=== PATIENT | female | born 1980 | race Caucasian/White ===

== ENCOUNTER 2016-08-16 17:05 | Emergency (ER) | payer OTHER ==
[~2016-08-16] VITALS: Ht 157.5 cm; Wt 80.7 kg
[~2016-08-16 17:05] MED LIST: AMOX-358 PO; BPR75T PO; CIPR-17 PO; DICY10CA26 PO; HYDR-757 PO; NAPR-243 PO; NITR-65 PO; ONDA4TAB8 PO; ONDAN4ODT PO; OSLT75C PO; PNT40TEC PO; PRM25T PO; SULF-222 PO
--- NOTE | 2016-08-16 18:34 | ED Abdominal Pain ---
General Chief Complaint: Abdominal/GI Problems Stated Complaint: ABD PAIN Nursing Triage Note: ARRIVED VIA AMB TO ROOM 07. COMPLAINS OF RIGHT SIDED ABD PAIN FOR SEVERAL DAYS. STATES TODAY AT WORK SHE STARTED HAVING STABBING PAIN. ALSO STATES WITH THIS PAIN SHE HAS HAD DIARRHEA AND A STOOL CX HAS BEEN SENT OFF AND IS WAITING ON A COLONOSCOPY WITH DR KIRAN. Sepsis Screen: No Definite Risk Source of Information: Patient, RN Notes Reviewed Exam Limitations: No Limitations History of Present Illness Time Seen By Provider: 18:33 Initial Comments Patient presents along c/ her c/ c/o RLQ abdominal pain. Has been having intermittent bouts of abdominal pain c/ diarrhea for a while now. Current bout started this AM and caused her to cry from the pain while @ work. Described as sharp and stabbing. Rates her pain a 5/10 @ present. Not sure of any fever. 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 (+) nausea the last 2 mornings as well. Denies any symptoms. Has had a BTL. Had recent stool evaluation and it returned negative for anything infectious per the patient. Dr. Kiran is going to set her up for a colonoscopy. Timing/Duration: Getting Worse (worse ever earlier today while @ work) Severity/Quality: Moderate, Dull Location: Flank (right) Radiation: No Radiation Activities at Onset: None Modifying Factors: Improves With Other (none) Associated Symptoms: Other (nausea) Allergies and Home Medications Allergies Coded Allergies: Penicillins (Verified Allergy, Unknown, 10/15/06) magnesium sulfate (Verified Allergy, Unknown, 10/15/06) ciprofloxacin (Unverified Adverse Reaction, Intermediate, HIVES, THROAT SWELLING, 05/09/10) Home Medications Famotidine 20 Mg Tablet, 20 MG PO BID, #30 Ref 0 Prescribed by: FLORIDA PAVON on 08/16/162042 Hyoscyamine Sulfate 0.125 Mg Tab.subl, 1-2 TAB SL Q6H PRN for CRAMPING/DIARRHEA , #30 Ref 0 Prescribed by: FLORIDA PAVON on 08/16/162042 Ondansetron HCl 4 Mg Tab, 4 MG PO Q6H PRN for NAUSEA/VOMITING, #10 Ref 0 Prescribed by: FLORIDA PAVON on 08/16/162042 Review of Systems Constitutional: see HPI Gastrointestinal: See HPI, Abdominal Pain, Diarrhea, Nausea All Other Systems Reviewed Negative Unless Noted: Yes (Negative excepted noted.) Past Xvaygrn-Inecax-Fwahth Hx Patient Social History Alcohol Use: Occasionally Uses Recreational Drug Use: No Smoking Status: Current Everyday Smoker Recent Foreign Travel: No Contact w/Someone Who Travel: No Recent Infectious Disease Expo: No Recent Hopitalizations: No Immunizations Up To Date Tetanus Booster (TDap): Less than 5yrs Surgeries HX Surgeries: Yes (COLONOSCOPY) Surgeries: Section, Tubal Ligation Respiratory Hx Respiratory Disorders: No Cardiovascular Hx Cardiac Disorders: No Neurological Hx Neurological Disorders: No Reproductive System Hx Reproductive Disorders: Yes Female Reproductive Disorders: Ovarian 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: Tubal Ligation Genitourinary Hx Genitourinary Disorders: Yes Genitourinary Disorders: Kidney Stones Gastrointestinal Hx Gastrointestinal Disorders: Yes (SPASTIC COLON) Gastrointestinal Disorders: Diverticulosis, Irritable Bowel Musculoskeletal Hx Musculoskeletal Disorders: No Endocrine Hx Endocrine Disorders: No HEENT HX ENT Disorders: No Cancer Hx Cancer: No Psychosocial Hx Psychiatric Problems: No Integumentary HX Skin/Integumentary Disorder: No Blood Transfusions Hx Blood Disorders: No Physical Exam Vital Signs VS - Last 72 Hours, by Label 08/16/16 08/16/16 17:35 20:56 Temp 98.0 98.0 Pulse 99 80 Resp 18 18 B/P (MAP) 139/70 Pulse Ox 98 97 Capillary Refill : Less Than 3 Seconds General Appearance: WD/WN, mild distress, obese Respiratory: no respiratory distress Cardiovascular: regular rate, rhythm Gastrointestinal: soft, No guarding, No rebound, tenderness (area of the junction of the RUQ and RLQ) Rectal: deferred Back: no CVA tenderness Neurologic/Psychiatric: no motor/sensory deficits, alert, oriented x 3 Skin: warm/dry Progress/Results/Core Measures Results/Orders Lab Results Laboratory Tests Test 08/16/16 18:45 08/16/16 18:56 Range/Units White Blood Count 10.5 4.3-11.0 10^3/uL Red Blood Count 4.57 4.35-5.85 10^6/uL Hemoglobin 13.1 11.5-16.0 G/DL Hematocrit 41 35-52 % Mean Corpuscular Volume 89 80-99 FL Mean Corpuscular Hemoglobin 29 25-34 PG Mean Corpuscular Hemoglobin Concent 32 32-36 G/DL Red Cell Distribution Width 13.5 10.0-14.5 % Platelet Count 351 130-400 10^3/uL Mean Platelet Volume 9.9 7.4-10.4 FL Neutrophils (%) (Auto) 68 42-75 % Lymphocytes (%) (Auto) 21 12-44 % Monocytes (%) (Auto) 8 0-12 % Eosinophils (%) (Auto) 2 0-10 % Basophils (%) (Auto) 1 0-10 % Neutrophils # (Auto) 7.1 1.8-7.8 X 10^3 Lymphocytes # (Auto) 2.2 1.0-4.0 X 10^3 Monocytes # (Auto) 0.8 0.0-1.0 X 10^3 Eosinophils # (Auto) 0.3 0.0-0.3 10^3/uL Basophils # (Auto) 0.1 0.0-0.1 10^3/uL Sodium Level 138 135-145 MMOL/L Potassium Level 4.0 3.6-5.0 MMOL/L Chloride Level 106 98-107 MMOL/L Carbon Dioxide Level 20 L 21-32 MMOL/L Anion Gap 12 5-14 MMOL/L Blood Urea Nitrogen 13 7-18 MG/DL Creatinine 0.67 0.60-1.30 MG/DL Estimat Glomerular Filtration Rate > 60 BUN/Creatinine Ratio 19 Glucose Level 100 70-105 MG/DL Calcium Level 8.9 8.5-10.1 MG/DL Total Bilirubin 0.2 0.1-1.0 MG/DL Aspartate Amino Transf (AST/SGOT) 13 5-34 U/L Alanine Aminotransferase (ALT/SGPT) 15 0-55 U/L Alkaline Phosphatase 95 40-136 U/L Total Protein 7.1 6.4-8.2 GM/DL Albumin 4.0 3.2-4.5 GM/DL Lipase 22 8-78 U/L Serum Test, Qualitative NEGATIVE NEGATIVE Urine Color YELLOW Urine Clarity SLIGHTLY CLOUDY Urine pH 5 5-9 Urine Specific [place] 1.025 H 1.016-1.022 Urine Protein 1+ H NEGATIVE Urine Glucose (UA) NEGATIVE NEGATIVE Urine Ketones 1+ H NEGATIVE Urine Nitrite NEGATIVE NEGATIVE Urine Bilirubin NEGATIVE NEGATIVE Urine Urobilinogen NORMAL NORMAL MG/DL Urine Leukocyte Esterase NEGATIVE NEGATIVE Urine RBC (Auto) 3+ H NEGATIVE Urine RBC NONE /HPF Urine WBC NONE /HPF Urine Squamous Epithelial Cells 0-5 /HPF Urine Crystals PRESENT H /LPF Urine Calcium Oxalate Crystals MODERATE H /LPF Urine Bacteria NEGATIVE /HPF Urine Casts NONE /LPF Urine Mucus MODERATE H /LPF Urine Culture Indicated NO My Orders Orders - FLORIDA PAVON DO Saline Lock/Iv-Start (08/16/16 18:36) Cbc With Automated Diff (08/16/16 18:36) Comprehensive Metabolic Panel (08/16/16 18:36) Lipase (08/16/16 18:36) Ua Culture If Indicated (08/16/16 18:36) Hcg,Qualitative Serum (08/16/16 18:36) Ketorolac Injection (Toradol Injection) (08/16/16 18:45) Ct Abd/Pelvis Wo(Kidney Stone) (08/16/16 19:41) Famotidine Tablet (Pepcid Tablet) (08/16/16 20:45) Ondansetron Injection (Zofran Injectio (08/16/16 20:45) Medications Given in ED Current Medications Medications Dose Ordered Sig/Carlos A Route Start Time Stop Time Status Last Admin Dose Admin Famotidine 40 mg ONCE ONCE PO 08/16/16 20:45 08/16/16 20:46 DC 08/16/16 20:48 40 MG Ketorolac Tromethamine 30 mg ONCE ONCE IVP 08/16/16 18:45 08/16/16 18:46 DC 08/16/16 18:50 30 MG Ondansetron HCl 4 mg ONCE ONCE IVP 08/16/16 20:45 08/16/16 20:46 DC 08/16/16 20:48 4 MG Vital Signs/I&O Vital Sign - Last 12Hours 08/16/16 08/16/16 17:35 20:56 Temp 98.0 98.0 Pulse 99 80 Resp 18 18 B/P (MAP) 139/70 Pulse Ox 98 97 Blood Pressure Mean: 93 Diagnostic Imaging Diagonstic Imaging: CT Plain Films/CT/US/NM/MRI: abdomen, pelvis Reviewed: Reviewed/Discussed (nothing acute per radiologist) Departure Impression Impression: Primary Impression: Abdominal pain Additional Impression: IBS (irritable bowel syndrome) Disposition: 01 HOME, SELF-CARE Condition: Stable Departure-Patient Inst. Decision time for Depature: 20:38 Referrals: MARIA L KIRAN MD, DANIEL J MD (PCP/Family) Primary Care Physician Patient Instructions: Irritable Bowel Syndrome (DC) Add. Discharge Instructions: All discharge instructions reviewed with patient and/or family. Voiced understanding. CALL DR. KIRAN ON THURSDAY TO SCHEDULE FOLLOW UP, INCLUDING COLONOSCOPY. Scripts Hyoscyamine Sulfate (Levsin-Sl) 0.125 Mg Tab.subl 1-2 TAB SL Q6H Y for CRAMPING/DIARRHEA, #30 TAB 0 Refills Prov: FLORIDA PAVON DO 08/16/16 Ondansetron HCl (Zofran) 4 Mg Tab 4 MG PO Q6H Y for NAUSEA/VOMITING, #10 TAB 0 Refills Prov: FLORIDA PAVON DO 08/16/16 Famotidine (Pepcid) 20 Mg Tablet 20 MG PO BID, #30 TAB 0 Refills Prov: FLORIDA PAVON DO 08/16/16 Work/School Note: Work Release Form Date Seen in the Emergency Department: Aug 16, 2016 Return to Work: Aug 18, 2016 Restrictions: No Restrictions FLORIDA PAVON DO Aug 16, 2016 18:34
[2016-08-16] MEDS ORDERED: KETOROLAC 30 MG/ML VIAL IVP ONE (18:45)
[2016-08-16 18:59] LABS: BASOPHILS # (AUTO) 0.1 10^3/uL (0.0-0.1); BASOPHILS % (AUTO) 1 % (0-10); EOSINOPHILS # (AUTO) 0.3 10^3/uL (0.0-0.3); EOSINOPHILS % (AUTO) 2 % (0-10); LYMPHOCYTES # (AUTO) 2.2 X 10^3 (1.0-4.0); LYMPHOCYTES % (AUTO) 21 % (12-44); MEAN CORPUSCULAR HEMOGLOBIN 29 PG (25-34); MEAN CORPUSCULAR HGB CONC 32 G/DL (32-36); MEAN CORPUSCULAR VOLUME 89 FL (80-99); MEAN PLATELET VOLUME 9.9 FL (7.4-10.4); MONOCYTES # (AUTO) 0.8 X 10^3 (0.0-1.0); MONOCYTES % (AUTO) 8 % (0-12); NEUTROPHILS # (AUTO) 7.1 X 10^3 (1.8-7.8); NEUTROPHILS % (AUTO) 68 % (42-75); PLATELET COUNT 351 10^3/uL (130-400); RED BLOOD COUNT 4.57 10^6/uL (4.35-5.85); RED CELL DISTRIBUTION WIDTH 13.5 % (10.0-14.5); WHITE BLOOD COUNT 10.5 10^3/uL (4.3-11.0)
[2016-08-16 19:27] LABS: ALANINE AMINOTRANSFERASE 15 U/L (0-55); ANION GAP 12 MMOL/L (5-14); ASPARTATE AMINO TRANSFERASE 13 U/L (5-34); BILIRUBIN,TOTAL 0.2 MG/DL (0.1-1.0); BLOOD UREA NITROGEN 13 MG/DL (7-18); BUN/CREATININE RATIO 19; CALCIUM 8.9 MG/DL (8.5-10.1); CARBON DIOXIDE 20 MMOL/L (21-32); CHLORIDE 106 MMOL/L (98-107); CREATININE SERUM 0.67 MG/DL (0.60-1.30); GFR ESTIMATED > 60; GLUCOSE 100 MG/DL (70-105); LIPASE 22 U/L (8-78); SODIUM 138 MMOL/L (135-145); TOTAL PROTEIN 7.1 GM/DL (6.4-8.2)
[2016-08-16 19:27] LABS: BILIRUBIN,URINE NEGATIVE (NEGATIVE); KETONES,URINE 1+ (NEGATIVE); LEUKOCYTE ESTERASE ,URINE NEGATIVE (NEGATIVE); NITRITE,URINE NEGATIVE (NEGATIVE); PH,URINE 5 (5-9); PROTEIN,URINE 1+ (NEGATIVE); UROBILINOGEN,URINE NORMAL (NORMAL)
[2016-08-16 19:38] LABS: CALCIUM OXALATE CRYSTALS,UR MODERATE /LPF; SQUAMOUS EPITHELIAL CELL,UR 0-5 /HPF
--- NOTE | 2016-08-16 20:22 | Diagnostic Imaging Report ---
PROCEDURE: CT urinary tract, rule out kidney stone. TECHNIQUE: Multiple contiguous axial images were obtained through the abdomen and pelvis without the use of intravenous contrast. INDICATION: Epigastric pain. Right-sided pain. Diarrhea. History of kidney stones. COMPARISON: 06/29/2014 FINDINGS: Included views of the lung bases are clear. CT abdomen: No renal or ureteral calculi are seen on either side. There is no hydroureteronephrosis or other evidence of obstruction. No focal renal lesions are seen on this noncontrast exam. The liver, spleen, pancreas, and adrenal glands have an unremarkable noncontrast CT appearance as well. Small bowel loops are nondistended. Normal appendix is identified. There is no loculated fluid collection, free fluid, nor free air within the abdomen. No abnormal mesenteric or retroperitoneal adenopathy is seen. Bony structures show no acute abnormalities. CT pelvis: Urinary bladder is unopacified. No calculi are seen within the urinary bladder. There is no loculated fluid collection, free fluid, nor free air within the pelvis. Patient appears to be status post previous tubal ligation. There is prominent hypodense appearance to the central portions of the cervix. No abnormal adenopathy is seen. Bony structures show no acute abnormalities. IMPRESSION: 1. No acute abnormalities within the abdomen or pelvis. No renal or ureteral calculi are seen on either side. 2. Prominent hypodense appearance to the central portions of the cervix. Findings may be on the basis of prominent endocervical fluid. Clinical correlation recommended. Dictated by: Dictated on workstation # [id number]
[2016-08-16] MEDS ORDERED: ONDN4T PO (20:43)
[2016-08-16] MEDS ORDERED: HYOS0.1283 SL (20:43)
[2016-08-16] MEDS ORDERED: FAMO-119 PO (20:43)
[2016-08-16] MEDS ORDERED: ONDANSETRON 4 MG/2 ML (SDV) Z0FRAN IVP ONE (20:45)
[2016-08-16] MEDS ORDERED: FAMOTIDINE 20 MG (PEPCID) TABLET PO ONE (20:45)
[2016-08-16 20:56] VITALS: BP 143/74
--- OUTSIDE RECORDS SUMMARY | 2016-08-19 09:54 | XMS REPORT | Continuity of Care Document ---
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.5 TOXIC EFFECT VENOM 05/08/2011 Ot E000.8 OTHER EXTERNAL CAUSE STATUS 05/08/2011 Ot E905.3 HORNET/WASP/BEE STING 05/08/2011 Ot V06.1 [id number], COMBINED [ 01/19/2012 Ot 564.1 IRRITABLE BOWEL SYNDROME 01/19/2012 Ot 789.00 ABDOMINAL PAIN, UNSPECIFIED SITE 01/13/2013 CORNELL BRISENO, FERNANDO Zayas Ot 558.9 NONINF GASTROENTERIT NEC 01/13/2013 CORNELL BRISENO, FERNANDO Zayas Ot 787.03 VOMITING ALONE 02/25/2014 FAITH CAMPOS APRN Ot 706.2 SEBACEOUS CYST 06/29/2014 FAITH CAMPOS BLENDING COORDINATOR Ot 789.03 ABDOMINAL PAIN, RIGHT LOWER QUADRANT 05/02/2015 SHONDA DAVIS DO Ot F17.210 NICOTINE DEPENDENCE, CIGARETTES, UNCOMPL 05/02/2015 SHONDA DAVIS DO Ot J02.9 ACUTE PHARYNGITIS, UNSPECIFIED 05/02/2015 SHONDA DAVIS DO Ot R05 COUGH 05/02/2015 SHONDA DAVIS DO Ot R68.83 CHILLS (WITHOUT FEVER) 02/08/2016 FAITH CAMPOS APRN Ot K52.9 NONINFECTIVE GASTROENTERITIS AND COLITIS 02/08/2016 FAITH CAMPOS APRN Ot R11.0 NAUSEA 02/08/2016 FAITH CAMPOS BLENDING COORDINATOR Ot R19.7 DIARRHEA, UNSPECIFIED Procedures Results Test Result Range Complete blood count (CBC) with automated white blood cell (WBC) differential - 02/08/16 11:20 Blood leukocytes automated count (number/volume) 8.5 10*3/ uL 4.3-11.0 Blood erythrocytes automated count (number/volume) 4.78 10*6 /uL 4.35-5.85 Venous blood hemoglobin measurement (mass/volume) 13.8 g/dL 11.5-16.0 Blood hematocrit (volume fraction) 42 % 35-52 Automated erythrocyte mean corpuscular volume 89 [foz_us] 80-99 Automated erythrocyte mean corpuscular hemoglobin (mass per erythrocyte) 29 pg 25-34 Automated erythrocyte mean corpuscular hemoglobin concentration measurement ( mass/volume) 33 g/dL 32-36 Automated erythrocyte distribution width ratio 13.6 % 10.0-14.5 Automated blood platelet count (count/volume) 318 10*3/uL 130-400 Automated blood platelet mean volume measurement 9.8 [foz_us ] 7.4-10.4 Automated blood neutrophils/100 leukocytes 70 % 42-75 Automated blood lymphocytes/100 leukocytes 19 % 12-44 Blood monocytes/100 leukocytes 9 % 0-12 Automated blood eosinophils/100 leukocytes 2 % 0-10 Automated blood basophils/100 leukocytes 0 % 0-10 Blood neutrophils automated count (number/volume) 6.0 10*3 1.8-7.8 Blood lymphocytes automated count (number/volume) 1.6 10*3 1.0-4.0 Blood monocytes automated count (number/volume) 0.8 10*3 0.0-1.0 Automated eosinophil count 0.2 10*3/uL 0.0-0.3 Automated blood basophil count (count/volume) 0.0 10*3/uL 0.0-0.1 Comprehensive metabolic panel - 02/08/16 11:20 Serum or plasma sodium measurement (moles/volume) 135 mmol/ L 135-145 Serum or plasma potassium measurement (moles/volume) 3.5 mmol/L 3.6-5.0 Serum or plasma chloride measurement (moles/volume) 105 mmol /L 98-107 Carbon dioxide 20 mmol/L 21-32 Serum or plasma anion gap determination (moles/volume) 10 mmol/L 5-14 Serum or plasma urea nitrogen measurement (mass/volume) 9 mg /dL 7-18 Serum or plasma creatinine measurement (mass/volume) 0.63 mg /dL 0.60-1.30 Serum or plasma urea nitrogen/creatinine mass ratio 14 NRG Serum or plasma creatinine measurement with calculation of estimated glomerular filtration rate > NRG Serum or plasma glucose measurement (mass/volume) 111 mg/dL 70-105 Serum or plasma calcium measurement (mass/volume) 8.7 mg/dL 8.5-10.1 Serum or plasma total bilirubin measurement (mass/volume) 0.4 mg/dL 0.1-1.0 Serum or plasma alkaline phosphatase measurement (enzymatic activity/volume) 113 U/L 40-136 Serum or plasma aspartate aminotransferase measurement (enzymatic activity/ volume) 19 U/L 5-34 Serum or plasma alanine aminotransferase measurement (enzymatic activity/volume ) 22 U/L 0-55 Serum or plasma protein measurement (mass/volume) 7.3 g/dL 6.4-8.2 Serum or plasma albumin measurement (mass/volume) 4.3 g/dL 3.2-4.5 Complete urinalysis with reflex to culture - 02/08/16 12:04 Urine color determination YELLOW NRG Urine clarity determination CLEAR NRG Urine pH measurement by test strip 5 5- 9 Specific gravity of urine by test strip 1.025 1.016-1.022 Urine protein assay by test strip, semi-quantitative 1+ NEGATIVE Urine glucose detection by automated test strip NEGATIVE NEGATIVE Erythrocytes detection in urine sediment by light microscopy 2+ NEGATIVE Urine ketones detection by automated test strip NEGATIVE NEGATIVE Urine nitrite detection by test strip NEGATIVE NEGATIVE Urine total bilirubin detection by test strip NEGATIVE NEGATIVE Urine urobilinogen measurement by automated test strip (mass/volume) NORMAL NORMAL Urine leukocyte esterase detection by dipstick NEGATIVE NEGATIVE Automated urine sediment erythrocyte count by microscopy (number/high power field) NONE NRG Automated urine sediment leukocyte count by microscopy (number/high power field ) NONE NRG Bacteria detection in urine sediment by light microscopy LARGE NRG Squamous epithelial cells detection in urine sediment by light microscopy 10-25 NRG Crystals detection in urine sediment by light microscopy PRESENT NRG Casts detection in urine sediment by light microscopy NONE NRG Mucus detection in urine sediment by light microscopy NEGATIVE NRG Complete urinalysis with reflex to culture NO NRG Calcium oxalate crystals detection in urine sediment by light microscopy MODERATE NRG Complete blood count (CBC) with automated white blood cell (WBC) differential - 08/16/16 18:45 Blood leukocytes automated count (number/volume) 10.5 10*3/ uL 4.3-11.0 Blood erythrocytes automated count (number/volume) 4.57 10*6 /uL 4.35-5.85 Venous blood hemoglobin measurement (mass/volume) 13.1 g/dL 11.5-16.0 Blood hematocrit (volume fraction) 41 % 35-52 Automated erythrocyte mean corpuscular volume 89 [foz_us] 80-99 Automated erythrocyte mean corpuscular hemoglobin (mass per erythrocyte) 29 pg 25-34 Automated erythrocyte mean corpuscular hemoglobin concentration measurement ( mass/volume) 32 g/dL 32-36 Automated erythrocyte distribution width ratio 13.5 % 10.0-14.5 Automated blood platelet count (count/volume) 351 10*3/uL 130-400 Automated blood platelet mean volume measurement 9.9 [foz_us ] 7.4-10.4 Automated blood neutrophils/100 leukocytes 68 % 42-75 Automated blood lymphocytes/100 leukocytes 21 % 12-44 Blood monocytes/100 leukocytes 8 % 0-12 Automated blood eosinophils/100 leukocytes 2 % 0-10 Automated blood basophils/100 leukocytes 1 % 0-10 Blood neutrophils automated count (number/volume) 7.1 10*3 1.8-7.8 Blood lymphocytes automated count (number/volume) 2.2 10*3 1.0-4.0 Blood monocytes automated count (number/volume) 0.8 10*3 0.0-1.0 Automated eosinophil count 0.3 10*3/uL 0.0-0.3 Automated blood basophil count (count/volume) 0.1 10*3/uL 0.0-0.1 Serum or plasma choriogonadotropin ( test) detection - 08/16/16 18:45 Serum or plasma choriogonadotropin ( test) detection NEGATIVE NEGATIVE Comprehensive metabolic panel - 08/16/16 18:45 Serum or plasma sodium measurement (moles/volume) 138 mmol/ L 135-145 Serum or plasma potassium measurement (moles/volume) 4.0 mmol/L 3.6-5.0 Serum or plasma chloride measurement (moles/volume) 106 mmol /L 98-107 Carbon dioxide 20 mmol/L 21-32 Serum or plasma anion gap determination (moles/volume) 12 mmol/L 5-14 Serum or plasma urea nitrogen measurement (mass/volume) 13 mg/dL 7-18 Serum or plasma creatinine measurement (mass/volume) 0.67 mg /dL 0.60-1.30 Serum or plasma urea nitrogen/creatinine mass ratio 19 NRG Serum or plasma creatinine measurement with calculation of estimated glomerular filtration rate > NRG Serum or plasma glucose measurement (mass/volume) 100 mg/dL 70-105 Serum or plasma calcium measurement (mass/volume) 8.9 mg/dL 8.5-10.1 Serum or plasma total bilirubin measurement (mass/volume) 0.2 mg/dL 0.1-1.0 Serum or plasma alkaline phosphatase measurement (enzymatic activity/volume) 95 U/L 40-136 Serum or plasma aspartate aminotransferase measurement (enzymatic activity/ volume) 13 U/L 5-34 Serum or plasma alanine aminotransferase measurement (enzymatic activity/volume ) 15 U/L 0-55 Serum or plasma protein measurement (mass/volume) 7.1 g/dL 6.4-8.2 Serum or plasma albumin measurement (mass/volume) 4.0 g/dL 3.2-4.5 Lipase - 08/16/16 18:45 Lipase 22 U/L 8-78 Complete urinalysis with reflex to culture - 08/16/16 18:56 Urine color determination YELLOW NRG Urine clarity determination SLIGHTLY CLOUDY NRG Urine pH measurement by test strip 5 5- 9 Specific gravity of urine by test strip 1.025 1.016-1.022 Urine protein assay by test strip, semi-quantitative 1+ NEGATIVE Urine glucose detection by automated test strip NEGATIVE NEGATIVE Erythrocytes detection in urine sediment by light microscopy 3+ NEGATIVE Urine ketones detection by automated test strip 1+ NEGATIVE Urine nitrite detection by test strip NEGATIVE NEGATIVE Urine total bilirubin detection by test strip NEGATIVE NEGATIVE Urine urobilinogen measurement by automated test strip (mass/volume) NORMAL NORMAL Urine leukocyte esterase detection by dipstick NEGATIVE NEGATIVE Automated urine sediment erythrocyte count by microscopy (number/high power field) NONE NRG Automated urine sediment leukocyte count by microscopy (number/high power field ) NONE NRG Bacteria detection in urine sediment by light microscopy NEGATIVE NRG Squamous epithelial cells detection in urine sediment by light microscopy 0-5 NRG Crystals detection in urine sediment by light microscopy PRESENT NRG Casts detection in urine sediment by light microscopy NONE NRG Mucus detection in urine sediment by light microscopy MODERATE NRG Complete urinalysis with reflex to culture NO NRG Calcium oxalate crystals detection in urine sediment by light microscopy MODERATE NRG Encounters ACCT No. Visit Date/Time Discharge Status Pt. Type Provider Facility Loc./Unit Complaint [id number] 08/16/2016 17:06:00 2016 20:56:00 DIS Emergency FLORIDA PAVON DO [facility] ER ABD PAIN [id number] 02/08/2016 11:02:00 2015 12:44:00 DIS Emergency FAITH CAMPOS APRN [facility] ER DIARRHEA [id number] 05/02/2015 13:13:00 2015 13:55:00 DIS Emergency SHONDA DAVIS DO [facility] ER FLU SYMPTOMS [id number] 06/29/2014 19:03:00 2014 21:42:00 DIS Emergency FAITH CAMPOS APRN [facility] ER R SIDE PAIN [id number] 02/25/2014 09:45:00 2014 11:09:00 DIS Emergency FAITH CAMPOS APRN [facility] ER NECK ABCESS [id number] 01/13/2013 13:55:00 2012 16:30:00 DIS Emergency FERNANDO SAARBIA MD [facility] ER V/D HEADACHE BACK/LEG PAIN [id number] 01/19/2012 15:54:00 Document Registration [id number] 05/08/2011 14:49:00 Document Registration
== END 2016-08-16 20:56 | disposition home or self-care (01) ==
LOC: EDUNIT# 17:05 → ER 17:06
DX: Z98.51 Tubal ligation status; K58.9 Irritable bowel syndrome, unspecified; Z87.442 Personal history of urinary calculi; Z87.19 Personal history of other diseases of the digestive system; F17.200 Nicotine dependence, unspecified, uncomplicated
CPT/HCPCS: 36415; 74176; 80053; 81000; 83690; 84703; 85025; 96374; 96375

== ENCOUNTER 2016-09-04 05:38 | Outpatient (CLI) | payer OTHER ==
[~2016-09-04] VITALS: Ht 157.5 cm; Wt 80.7 kg
[~2016-09-04 05:38] MED LIST changes: +FAMO-119 PO; +HYOS0.1283 SL; +ONDN4T PO
== END 2016-09-04 10:57 ==
LOC: PREOP 05:38
PROVIDERS: ATTEND Surgery
DX: Z01.818 Encounter for other preprocedural examination (principal); R19.7 Diarrhea, unspecified

== ENCOUNTER 2016-09-08 07:53 | Day surgery (SDC) | payer OTHER ==
[~2016-09-08] VITALS: Ht 157.5 cm; Wt 80.7 kg
[2016-09-08] MEDS ORDERED: NS IV 500 ML 500 ML ONE (07:55)
[2016-09-08] MEDS ORDERED: NS IV 500 ML 500 ML IV PRN (08:15)
[2016-09-08 08:25] VITALS: BP 127/75
[2016-09-08] MEDS ORDERED: MIDAZOLAM 2 MG/2 ML (VERSED) VIAL ONE ×3 (08:36→08:37)
[2016-09-08] MEDS ORDERED: fentaNYL INJECTION 100 MCG/2 ML AMP ONE ×2 (08:37→09:04)
[2016-09-08] MEDS: fentaNYL INJECTION 100 MCG/2 ML AMP IVP PRN ×4 (08:52→09:10)
[2016-09-08] MEDS: MIDAZOLAM 2 MG/2 ML (VERSED) VIAL IVP PRN ×3 (08:55→09:06)
--- NOTE | 2016-09-08 09:08 | History & Physicial ---
History of Present Illness History of Present Illness Reason for visit/HPI to undergo colonoscopy regarding chronic diarrhea. Family history of colon polyps and colon cancer. Date of Admission Date Seen by Provider: Sep 08, 2016 Time Seen by Provider: 09:06 I consulted on this patient on 09/08/16 09:06 Attending Physician Maria L Kiran MD Admitting Physician Acosta Gamble MD Consult Allergies and Home Medications Allergies Coded Allergies: Penicillins (Verified Allergy, Unknown, 10/15/06) magnesium sulfate (Verified Allergy, Unknown, 10/15/06) ciprofloxacin (Unverified Adverse Reaction, Intermediate, HIVES, THROAT SWELLING, 05/09/10) Home Medications No Active Prescriptions or Reported Meds Past Dbibibr-Afmjix-Rpztxg Hx Patient Social History Marrital Status: Employed/Student: employed Alcohol Use: Rarely Uses Recreational Drug Use: No Smoking Status: Current Everyday Smoker Type Used: Cigarettes Recent Foreign Travel: No Contact w/other who traveled: No Recent Hopitalizations: No Recent Infectious Disease Expo: No Immunizations Up To Date Tetanus Booster (TDap): Less than 5yrs Seasonal Allergies Seasonal Allergies: Yes Surgeries HX Surgeries: Yes (C/S x3) Surgeries: Section, Tubal Ligation Respiratory Hx Respiratory Disorders: No Cardiovascular Hx Cardiovascular Disorders: No Neurological Hx Neurological Disorders: No Reproductive System Hx Reproductive Disorders: Yes Female Reproductive Disorders: Ovarian Cyst Genitourinary Hx Genitourinary Disorders: Yes Genitourinary Disorders: Kidney Stones Gastrointestinal Hx Gastrointestinal Disorders: Yes (SPASTIC COLON) Gastrointestinal Disorders: Diverticulosis, Chronic Diarrhea, Irritable Bowel Musculoskeletal Hx Musculoskeletal Disorders: No Endocrine Hx Endocrine Disorders: No HEENT HX ENT Disorders: No Loss of Vision: Denies Hearing Impairment: Denies Cancer Hx Cancer: No Psychosocial Hx Psychiatric Problems: No Integumentary HX Skin/Integumentary Disorder: No Blood Transfusions Hx Blood Disorders: No Constitutional: no symptoms reported EENTM: no symptoms reported Respiratory: no symptoms reported Cardiovascular: no symptoms reported Gastrointestinal: abdominal pain (LLQ), diarrhea Genitourinary: no symptoms reported : No Musculoskeletal: no symptoms reported Skin: no symptoms reported Psychiatric/Neurological: No Symptoms Reported Physical Exam Vital Signs Vital Sign - Last 12Hours 09/08/16 08:25 Temp 97.8 Pulse 91 Resp 16 B/P (MAP) 127/75 Pulse Ox 96 O2 Delivery Room Air Capillary Refill : General Appearance: Anxious HEENT: Normal ENT Inspection Neck: Normal Inspection Respiratory: Lungs Clear Cardiovascular: Regular Rate, Rhythm Gastrointestinal: Non Tender, Soft Rectal: Deferred Extremity: Normal Inspection Neurologic/Psychiatric: Alert, Oriented x3 Skin: Warm/Dry Assessment/Plan Assessment and Plan chronic diarrhea. Family history of polyps and colon cancer. For colonoscopy. Problems: MARIA L KIRAN MD Sep 08, 2016 9:07 am
--- NOTE | 2016-09-08 09:19 | Conscious Sedation/ASA ---
Conscious Sedation Pre-Proced Time Reviewed: 08:47 ASA Class: 2 Airway Mallampati Classification: ([place] appropriate class) I. II. III, IV Lungs Heart ASA score ASA 1: a normal healthy patient ASA 2: a patient with a mild systemic disease (mid diabetes, controlled hypertension, obesity ASA 3: a patient with a severe systemic disease that limits activity (angina , COPD, prior Myocardial infarction) ASA 4: a patient with an incapacitating disease that is a constant threat to life (CHF, renal failure) ASA 5: a moribund patient not expected to survive 24 hrs. (ruptured aneurysm) ASA 6: a declared brain patient whose organs are being harvested. For emergent operations, add the letter E after the classification Grade 1 Sedation Plan: Discussed options with patient/fam Note The patient is an appropriate candidate to undergo the planned procedure, sedation, and anesthesia. The patient immediately re-assessed prior to indication. MARIA L KIRAN MD Sep 08, 2016 9:19 am
--- NOTE | 2016-09-08 09:21 | Endo Procedure Record ---
Endo Procedure Report Date of Procedure Sep 08, 2016 Surgeon (s) MARIA L KIRAN MD Post Procedure/Op Diagnosis normal colonoscopy Procedure Performed colonoscopy to cecum Description of Procedure Anesthesia Type: Conscious Sedation Specimen(s) collected/removed none Description of the Procedure Indication for procedure: This lady reported diarrhea over a long period of time and has a family history of colon polyps along with a family history of colon cancerdear therefore, it is felt reasonable to perform colonoscopy for further evaluation. Informed consent was obtained after reviewing the procedure in detail. Description of the procedure: She was placed in left lateral decubitus position and her vital signs were monitored. Conscious sedation was achieved using Versed and fentanyl. Digital rectal examination was unremarkable. The colonoscope was then introduced into the rectum and advanced all the way up to the cecum. The scope was then withdrawn slowly and the mucosa examined in a systematic fashion. There was no abnormality She tolerated the procedure well and was taken back to the nursing area in a stable condition. Impression: Normal colonoscopy. Chronic diarrhea. Positive family history. Recommend repeating in 5 years for screening purposes. With regard to her presenting symptoms, it is reasonable to manage her on the lines of irritable bowel syndrome. Copies To: INGRID BANKS MD, XAVIER M MD Sep 08, 2016 9:21 am
--- NOTE | 2016-09-08 09:22 | Discharge Inst-Simple/Standard ---
Discharge Inst-Standard Discharge Medications New, Converted or Re-Newed RX: Other Patient Instructions/Follow Up Plan of Care/Instructions/FU: follow-up with her primary. Screening colonoscopy in 5 years, in view of family history. Activity as Tolerated: Yes Discharge Diet: No Restrictions MARIA L KIRAN MD Sep 08, 2016 9:22 am
[2016-09-08 09:35] VITALS: BP 134/78
[2016-09-08 10:05] VITALS: BP 104/67
== END 2016-09-08 10:27 | disposition home or self-care (01) ==
LOC: ENDO 07:53
PROVIDERS: ATTEND Surgery
DX: K52.9 Noninfective gastroenteritis and colitis, unspecified (principal); Z86.010 Personal history of colon polyps; F17.210 Nicotine dependence, cigarettes, uncomplicated; Z87.442 Personal history of urinary calculi

== ENCOUNTER → 2017-01-30 | Outpatient (CLI) | payer OTHER ==
--- NOTE | 2017-01-30 16:23 | Diagnostic Imaging Report ---
US NON OB PELVIS COMP/TRANSVAG TECHNIQUE: Transabdominal and transvaginal grayscale, color Doppler and pulse duplex imaging of the pelvis was performed. INDICATION: Abnormal uterine bleeding. FINDINGS: The uterus measures 8.8 x 4.2 x 3.9 cm. The myometrium is normal in echogenicity without discrete mass. A scar is present in the lower anterior uterine segment. The endometrium measures up to 0.4 cm where visualized, and is normal in echogenicity. The right ovary measures 1.9 x 2.6 x 1.9 cm. Normal blood flow is seen in the right ovary by color Doppler and spectral Doppler imaging. The left ovary is obscured by surrounding bowel gas. No suspicious adnexal mass or free pelvic fluid. IMPRESSION: 1. Physiologic appearance of the endometrium measuring 0.4 cm in thickness. 2. No myometrial mass. Dictated by: Dictated on workstation # [id number]
== END ==
LOC: RAD 11:27
PROVIDERS: ATTEND Family Medicine
DX: N93.8 Other specified abnormal uterine and vaginal bleeding (principal)
CPT/HCPCS: 76830; 76856

== ENCOUNTER 2017-04-05 15:10 | Emergency (ER) | payer OTHER ==
[~2017-04-05] VITALS: Ht 157.5 cm; Wt 80.7 kg
--- OUTSIDE RECORDS SUMMARY | 2017-04-05 15:16 | XMS REPORT | Continuity of Care Document ---
Author Author [facility] Organization [facility] Address Unknown Phone Unavailable Allergies Active Description Code Type Severity Reaction Onset Reported/Identified Relationship to Patient Clinical Status Yes magnesium sulfate [id number] Drug Allergy Unknown N/A 10/15/2006 Yes Penicillins [id number] Drug Allergy Unknown N/A 10/15/2006 Yes ciprofloxacin [id number] Drug Allergy Moderate HIVES, THROAT S 05/09/2010 Medications There is no data. Problems Date Dx Coded Attending Type Code Diagnosis Diagnosed By 05/08/2011 Ot 989.5 TOXIC EFFECT VENOM 05/08/2011 Ot E000.8 OTHER EXTERNAL CAUSE STATUS 05/08/2011 Ot E905.3 HORNET/WASP/ BEE STING 05/08/2011 Ot V06.1 DIPHTHERIA- TETANUS-PERTUSSIS, COMBINED [ 01/19/2012 Ot 564.1 IRRITABLE BOWEL SYNDROME 01/19/2012 Ot 789.00 ABDOMINAL PAIN, UNSPECIFIED SITE 01/13/2013 CORNELL BRISENO, FERNANDO Zayas Ot 558.9 NONINF GASTROENTERIT NEC 01/13/2013 FERNANDO SARABIA MD Ot 787.03 VOMITING ALONE 02/25/2014 FAITH CAMPOS APRN Ot 706.2 SEBACEOUS CYST 06/29/2014 FAITH CAMPOS APRN Ot 789.03 ABDOMINAL PAIN, RIGHT LOWER QUADRANT 05/02/2015 SHONDA DAVIS DO Ot F17.210 NICOTINE DEPENDENCE, CIGARETTES, UNCOMPL 05/02/2015 SHONDA DAVIS DO Ot J02.9 ACUTE PHARYNGITIS, UNSPECIFIED 05/02/2015 SHONDA DAVIS DO Ot R05 COUGH 05/02/2015 SHONDA DAVIS DO Ot R68.83 CHILLS (WITHOUT FEVER) 02/08/2016 FAITH CAMPOS APRN Ot K52.9 NONINFECTIVE GASTROENTERITIS AND COLITIS 02/08/2016 FAITH CAMPOS APRN Ot R11.0 NAUSEA 02/08/2016 FAITH CAMPOS APRN Ot R19.7 DIARRHEA, UNSPECIFIED 08/16/2016 FLORIDA PAVON DO Ot F17.200 NICOTINE DEPENDENCE, UNSPECIFIED, UNCOMP 08/16/2016 FLORIDA PAVON DO Ot K58.9 IRRITABLE BOWEL SYNDROME WITHOUT DIARRHE 08/16/2016 FLORIDA PAVON DO Ot R10.31 RIGHT LOWER QUADRANT PAIN 08/16/2016 FLORIDA PAVON DO Ot Z87.19 PERSONAL HISTORY OF OTHER DISEASES OF TH 08/16/2016 FLORIDA PAVON DO Ot Z87.442 PERSONAL HISTORY OF URINARY CALCULI 08/16/2016 FLORIDA PAVON DO Ot Z98.51 TUBAL LIGATION STATUS 08/19/2016 FLORIDA PAVON DO Ot F17.200 NICOTINE DEPENDENCE, UNSPECIFIED, UNCOMP 08/19/2016 FLOIRDA PAVON DO Ot K58.9 IRRITABLE BOWEL SYNDROME WITHOUT DIARRHE 08/19/2016 FLORIDA PAVON DO Ot R10.31 RIGHT LOWER QUADRANT PAIN 08/19/2016 FLORIDA PAVON DO Ot Z87.19 PERSONAL HISTORY OF OTHER DISEASES OF TH 08/19/2016 FLORIDA PAVON DO Ot Z87.442 PERSONAL HISTORY OF URINARY CALCULI 08/19/2016 FLORIDA PAVON DO Ot Z98.51 TUBAL LIGATION STATUS 09/04/2016 QIANA BRISENO, MARIA L Lambert Ot R19.7 DIARRHEA, UNSPECIFIED 09/04/2016 QIANA BRISENO, MARIA L Lambert Ot Z01.818 ENCOUNTER FOR OTHER PREPROCEDURAL EXAMIN 09/08/2016 MARIA L KIRAN MD Ot F17.210 NICOTINE DEPENDENCE, CIGARETTES, UNCOMPL 09/08/2016 MARIA L KIRAN MD Ot K52.9 NONINFECTIVE GASTROENTERITIS AND COLITIS 09/08/2016 MARIA L KIRAN MD Ot Z86.010 PERSONAL HISTORY OF COLONIC POLYPS 09/08/2016 MARIA L KIRAN MD Ot Z87.442 PERSONAL HISTORY OF URINARY CALCULI 09/10/2016 MARIA L KIRAN MD Ot F17.210 NICOTINE DEPENDENCE, CIGARETTES, UNCOMPL 09/10/2016 MARIA L KIRAN MD Ot K52.9 NONINFECTIVE GASTROENTERITIS AND COLITIS 09/10/2016 MARIA L KIRAN MD Ot Z86.010 PERSONAL HISTORY OF COLONIC POLYPS 09/10/2016 MARIA L KIRAN MD Ot Z87.442 PERSONAL HISTORY OF URINARY CALCULI 02/18/2017 JOCELYN BRISENO, INGRID Guardado Ot N93.8 OTHER SPECIFIED ABNORMAL UTERINE AND VAG Procedures There is no data. Results Test Result Range Complete blood count (CBC) with automated white blood cell (WBC) differential - 02/08/16 11:20 Blood leukocytes automated count (number/volume) 8.5 10*3/uL 4.3-11.0 Blood erythrocytes automated count (number/volume) 4.78 10*6/uL 4.35-5.85 Venous blood hemoglobin measurement (mass/volume) 13.8 [...] Automated blood platelet mean volume measurement 9.8 [foz_us] 7.4-10.4 Automated blood neutrophils/100 leukocytes 70 % [...] Serum or plasma sodium measurement (moles/volume) 135 mmol/L 135-145 Serum or plasma potassium measurement (moles/volume) 3.5 mmol/L 3.6-5.0 Serum or plasma chloride measurement (moles/volume) 105 mmol/L 98-107 Carbon dioxide 20 mmol/L 21-32 Serum or plasma anion gap determination (moles/volume) 10 mmol/L 5-14 Serum or plasma urea nitrogen measurement (mass/volume) 9 mg/dL 7-18 Serum or plasma creatinine measurement (mass/volume) 0.63 mg/dL 0.60-1.30 Serum or plasma urea nitrogen/creatinine mass [...] Urine pH measurement by test strip 5 5-9 Specific gravity of urine by test strip 1.025 1.016- 1.022 Urine protein assay by test strip, semi-quantitative [...] 18:45 Blood leukocytes automated count (number/volume) 10.5 10*3/uL 4.3-11.0 Blood erythrocytes automated count (number/volume) 4.57 10*6/uL 4.35-5.85 Venous blood hemoglobin measurement (mass/volume) 13.1 [...] Automated blood platelet mean volume measurement 9.9 [foz_us] 7.4-10.4 Automated blood neutrophils/100 leukocytes 68 % [...] Serum or plasma sodium measurement (moles/volume) 138 mmol/L 135-145 Serum or plasma potassium measurement (moles/volume) 4.0 mmol/L 3.6-5.0 Serum or plasma chloride measurement (moles/volume) 106 mmol/L 98-107 Carbon dioxide 20 mmol/L 21-32 Serum or plasma anion gap determination (moles/volume) 12 mmol/L 5-14 Serum or plasma urea nitrogen measurement (mass/volume) 13 mg/dL 7-18 Serum or plasma creatinine measurement (mass/volume) 0.67 mg/dL 0.60-1.30 Serum or plasma urea nitrogen/creatinine mass [...] Urine pH measurement by test strip 5 5-9 Specific gravity of urine by test strip 1.025 1.016- 1.022 Urine protein assay by test strip, semi-quantitative [...] Status Pt. Type Provider Facility Loc./Unit Complaint [id number] 01/30/2017 11:27:00 01/30/2017 23:59:59 CLS Outpatient JOCELYN BRISENO, INGRID Guardado [facility] RAD AUB [id number] 09/08/2016 07:53:00 09/08/2016 10:27:00 DIS Outpatient QIANA BRISENO, MARIA L Lambert [facility] ENDO CHRONIC DIARRHEA [id number] 09/04/2016 05:38:00 09/04/2016 10:57:00 DIS Outpatient QIANA BRISENO, MARIA L Lambert [facility] PREOP CHRONIC DIARRHEA [id number] 08/16/2016 17:06:00 08/16/2016 20:56:00 DIS Emergency FLORIDA PAVON DO [facility] ER ABD PAIN [id number] 02/08/2016 11:02:00 02/08/2016 12:44:00 DIS Emergency FAITH CAMPOS APRN [facility] ER DIARRHEA [id number] 05/02/2015 13:13:00 05/02/2015 13:55:00 DIS Emergency SHONDA DAVIS DO [facility] ER FLU SYMPTOMS [id number] 06/29/2014 19:03:00 06/29/2014 21:42:00 DIS Emergency FAITH CAMPOS APRN [facility] ER R SIDE PAIN [id number] 02/25/2014 09:45:00 02/25/2014 11:09:00 DIS Emergency FAITH CAMPOS APRN [facility] ER NECK ABCESS [id number] 01/13/2013 13:55:00 01/13/2013 16:30:00 DIS Emergency FERNANDO SARABIA MD [facility] ER V/D HEADACHE BACK/LEG PAIN [id number] 01/19/2012 15:54:00 Document Registration [id number] 05/08/2011 14:49:00 Document Registration
--- NOTE | 2017-04-05 17:17 | ED Cough/URI ---
General Chief Complaint: Cough/Cold/Flu Symptoms Stated Complaint: SOB/CP/HEARTBURN/COUGH Nursing Triage Note: ARRIVED VIA AMB TO ROOM 09. COMPLAINS OF COUGH/CHEST PAIN, SORE THROAT X2 DAYS THAT IS GETTING WORSE. Source: patient, family Exam Limitations: no limitations History of Present Illness Date Seen by Provider: Apr 05, 2017 Time Seen by Provider: 17:15 Initial Comments This 36-year-old white female presents with cough congestion and sore throat for the last 2 days. Her symptoms are progressing. Patient denies associated nausea vomiting diarrhea headache stiff neck or photophobia. The patient denies shortness of breath. She has had no hemoptysis. Patient has similar episode earlier this flu season which lasted approximately 6 weeks before it resolved. Allergies and Home Medications Allergies Coded Allergies: Penicillins (Verified Allergy, Unknown, 10/15/06) Sulfa (Sulfonamide Antibiotics) (Verified Allergy, Unknown, 04/05/17) magnesium sulfate (Verified Allergy, Unknown, 10/15/06) ciprofloxacin (Unverified Adverse Reaction, Intermediate, HIVES, THROAT SWELLING, 05/09/10) Home Medications No Active Prescriptions or Reported Meds Constitutional: No chills, fever EENTM: No hearing loss Respiratory: see HPI, cough, No short of breath Cardiovascular: No chest pain Gastrointestinal: No abdominal pain, No diarrhea, No nausea, No vomiting Genitourinary: no symptoms reported Musculoskeletal: no symptoms reported Skin: no symptoms reported Psychiatric/Neurological: No Symptoms Reported Hematologic/Lymphatic: No Symptoms Reported Immunological/Allergic: no symptoms reported Past [place]-Vvlbls-Qrmfjl Hx Patient Social History Alcohol Use: Denies Use Recreational Drug Use: No Smoking Status: Current Everyday Smoker Type Used: Cigarettes Recent Foreign Travel: No Contact w/Someone Who Travel: No Recent Infectious Disease Expo: No Recent Hopitalizations: No Immunizations Up To Date Tetanus Booster (TDap): Less than 5yrs Seasonal Allergies Seasonal Allergies: Yes Surgeries History of Surgeries: Yes (C/S x3) Surgeries: Section, Tubal Ligation Respiratory History of Respiratory Disorde: No Cardiovascular History of Cardiac Disorders: No Neurological History of Neurological Disord: No Reproductive System Hx Reproductive Disorders: Yes Female Reproductive Disorders: Ovarian Cyst [employer]CH[employer] 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: Tubal 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 Genitourinary Genitourinary Disorders: Kidney Stones Gastrointestinal History of Gastrointestinal Di: Yes (SPASTIC COLON) Gastrointestinal Disorders: Diverticulosis, Chronic Diarrhea, Irritable Bowel Musculoskeletal History of Musculoskeletal Dis: No Endocrine History of Endocrine Disorders: No HEENT History of HEENT Disorders: No Loss of Vision: Denies Hearing Impairment: Denies Cancer History of Cancer: No Psychosocial History of Psychiatric Problem: No Integumentary History of Skin or Integumenta: No Blood Transfusions History of Blood Disorders: No Reviewed Nursing Assessment Reviewed/Agree w Nursing PMH: Yes Physical Exam Vital Signs Vital Signs - First Documented 04/05/17 15:46 Temp 98.1 Pulse 91 Resp 18 B/P (MAP) 110/72 (85) Pulse Ox 96 Capillary Refill : Less Than 3 Seconds General Appearance: WD/WN, no apparent distress Eyes: Bilateral Eye Normal Inspection HEENT: pharyngeal erythema Neck: non-tender, supple Respiratory: lungs clear Cardiovascular: normal peripheral pulses, regular rate, rhythm Gastrointestinal: normal bowel sounds, non tender Extremities: normal range of motion, non-tender Neurologic/Psychiatric: no motor/sensory deficits, alert, normal mood/affect, oriented x 3 Skin: normal color, warm/dry Progress/Results/Core Measures Suspected Sepsis Recent Fever Within 48 Hours: No Infection Criteria Present: Suspected New Infection New/Unexplained Altered Menta: No Sepsis Screen: No Definite Risk Sepsis Diagnosis: SIRS Temperature:98.1 Pulse: 91 Respiratory Rate: 18 Laboratory Tests 04/05/17 17:05: White Blood Count 8.3 Blood Pressure 110 /72 Mean: 85 Laboratory Tests 04/05/17 17:05: Platelet Count 291 Results/Orders Lab Results Laboratory Tests Test 04/05/17 17:05 Range/Units White Blood Count 8.3 4.3-11.0 10^3/uL Red Blood Count 4.57 4.35-5.85 10^6/uL Hemoglobin 13.5 11.5-16.0 G/DL Hematocrit 41 35-52 % Mean Corpuscular Volume 90 80-99 FL Mean Corpuscular Hemoglobin 30 25-34 PG Mean Corpuscular Hemoglobin Concent 33 32-36 G/DL Red Cell Distribution Width 13.0 10.0-14.5 % Platelet Count 291 130-400 10^3/uL Mean Platelet Volume 9.9 7.4-10.4 FL Neutrophils (%) (Auto) 66 42-75 % Lymphocytes (%) (Auto) 21 12-44 % Monocytes (%) (Auto) 9 0-12 % Eosinophils (%) (Auto) 4 0-10 % Basophils (%) (Auto) 1 0-10 % Neutrophils # (Auto) 5.5 1.8-7.8 X 10^3 Lymphocytes # (Auto) 1.7 1.0-4.0 X 10^3 Monocytes # (Auto) 0.8 0.0-1.0 X 10^3 Eosinophils # (Auto) 0.3 0.0-0.3 10^3/uL Basophils # (Auto) 0.0 0.0-0.1 10^3/uL Group A Streptococcus Screen NEGATIVE NEGATIVE My Orders Orders - BECKY GUIDRY MD Cbc With Automated Diff (04/05/17 16:50) Chest Pa/Lat (2 View) (04/05/17 16:50) Rapid Strep A Screen (04/05/17 16:50) Vital Signs/I&O Vital Sign - Last 12Hours 04/05/17 15:46 Temp 98.1 Pulse 91 Resp 18 B/P (MAP) 110/72 (85) Pulse Ox 96 Capillary Refill : Less Than 3 Seconds Blood Pressure Mean: 85 Progress Note : Time: 17:46 Progress Note The patient's chest x-ray failed to demonstrate evidence of an infiltrate. The rapid strep screen was negative. Patient's CBC was unremarkable. I discussed findings with patient and we agreed on a treatment plan. Departure Impression Impression: Primary Impression: Upper respiratory infection Qualified Codes: J06.9 - Acute upper respiratory infection, unspecified Disposition: 01 HOME, SELF-CARE Condition: Unchanged Departure-Patient Inst. Decision time for Depature: 17:47 Referrals: INGRID BANKS MD (PCP/Family) Primary Care Physician Patient Instructions: Viral Upper Respiratory Infection, Adult (DC) Add. Discharge Instructions: Tussionex for cough. All discharge instructions reviewed with patient and/or family. Voiced understanding. Scripts No Active Prescriptions or Reported Meds BECKY GUIDRY MD Apr 05, 2017 17:17
[2017-04-05 17:18] LABS: BASOPHILS % (AUTO) 1 % (0-10); EOSINOPHILS # (AUTO) 0.3 10^3/uL (0.0-0.3); EOSINOPHILS % (AUTO) 4 % (0-10); HEMATOCRIT 41 % (35-52); HEMOGLOBIN 13.5 G/DL (11.5-16.0); LYMPHOCYTES # (AUTO) 1.7 X 10^3 (1.0-4.0); LYMPHOCYTES % (AUTO) 21 % (12-44); MEAN CORPUSCULAR HEMOGLOBIN 30 PG (25-34); MEAN CORPUSCULAR HGB CONC 33 G/DL (32-36); MEAN CORPUSCULAR VOLUME 90 FL (80-99); MEAN PLATELET VOLUME 9.9 FL (7.4-10.4); MONOCYTES # (AUTO) 0.8 X 10^3 (0.0-1.0); MONOCYTES % (AUTO) 9 % (0-12); NEUTROPHILS # (AUTO) 5.5 X 10^3 (1.8-7.8); NEUTROPHILS % (AUTO) 66 % (42-75); PLATELET COUNT 291 10^3/uL (130-400); RED BLOOD COUNT 4.57 10^6/uL (4.35-5.85); WHITE BLOOD COUNT 8.3 10^3/uL (4.3-11.0)
[2017-04-05 17:55] VITALS: BP 110/72
--- NOTE | 2017-04-05 18:06 | Diagnostic Imaging Report ---
EXAMINATION: Chest (PA and lateral). CLINICAL INDICATION: 36-year-old female, cough and chest pain. Sore throat for two days. COMPARISON: None. FINDINGS: Heart size and mediastinal contours are unremarkable. There is no identified pneumothorax. There is no pleural effusion. There is no identified focal airspace consolidation. IMPRESSION: No identified acute cardiopulmonary abnormality. Dictated by: Dictated on workstation # [id number]
== END 2017-04-05 17:55 | disposition home or self-care (01) ==
LOC: EDUNIT# 15:10 → ER 15:11
DX: J06.9 Acute upper respiratory infection, unspecified (principal); F17.210 Nicotine dependence, cigarettes, uncomplicated; Z87.442 Personal history of urinary calculi; Z87.19 Personal history of other diseases of the digestive system; Z98.51 Tubal ligation status; Z87.42 Personal history of other diseases of the female genital tract; Z87.59 Personal history of other complications of pregnancy, childbirth and the puerperium; Z88.0 Allergy status to penicillin; Z88.2 Allergy status to sulfonamides; Z88.1 Allergy status to other antibiotic agents
CPT/HCPCS: 36415; 71046; 85025; 87430; 99283

== ENCOUNTER 2017-04-23 05:33 | Outpatient (CLI) | payer OTHER ==
[~2017-04-23] VITALS: Ht 157.5 cm; Wt 80.7 kg
== END 2017-04-23 11:28 ==
LOC: PREOP 05:33
PROVIDERS: ATTEND Obstetrics & Gynecology
DX: Z01.818 Encounter for other preprocedural examination (principal); R10.2 Pelvic and perineal pain; N94.6 Dysmenorrhea, unspecified; N93.9 Abnormal uterine and vaginal bleeding, unspecified

== ENCOUNTER 2017-05-01 05:48 | Day surgery (SDC) | payer OTHER ==
[~2017-05-01] VITALS: Ht 157.5 cm; Wt 80.7 kg
[2017-05-01 06:30] VITALS: BP 106/59
[2017-05-01] MEDS ORDERED: FAMOTIDINE 20MG/2ML IV (PEPCID) ONE (06:40)
[2017-05-01] MEDS ORDERED: BUPIVACAINE 0.25% 30 ML (SENSORCAINE) VIAL ONE (06:41)
[2017-05-01] MEDS ORDERED: ceFAZolin 2 GM IV Premixed 50 ML IV ONE (06:45)
[2017-05-01] MEDS: FAMOTIDINE 20MG/2ML IV (PEPCID) IV ONE ×2 (06:45→07:21)
[2017-05-01] MEDS ORDERED: metroNIDAZOLE 500MG/100ML IVPB 100 ML IV ONE (06:45)
[2017-05-01] MEDS: LACTATED RINGERS 1,000 ML IV PRN ×3 (06:45→08:33)
[2017-05-01] MEDS ORDERED: LACTATED RINGERS 1,000 ML IV PRN (06:45)
[2017-05-01] MEDS ORDERED: LIDOCAINE PF 2% 5 ML (XYLOCAINE) VIAL ONE (06:51)
[2017-05-01] MEDS ORDERED: ROCURONIUM 10 MG/ML 5 ML SYRINGE IV ONE (06:51)
[2017-05-01] MEDS ORDERED: ONDANSETRON 4 MG/2 ML (SDV) Z0FRAN ONE ×2 (06:51→08:35)
[2017-05-01] MEDS ORDERED: proPOfol 200 MG/20 ML (DIPRIVAN) VIAL IV ONE (06:51)
[2017-05-01] MEDS ORDERED: fentaNYL INJECTION 100 MCG/2 ML AMP ONE ×2 (06:52→07:51)
[2017-05-01] MEDS ORDERED: MIDAZOLAM 2 MG/2 ML (VERSED) VIAL ONE (06:52)
[2017-05-01] MEDS ORDERED: SEVOFLURANE (ULTANE) 15 ML INHAL SOLN ONE ×7 (06:53→08:41)
[2017-05-01] MEDS ORDERED: KETOROLAC 30 MG/ML VIAL ONE ×3 (06:53→08:36)
[2017-05-01] MEDS ORDERED: DEXAMETHASONE 10 MG/ML (DECADRON) 1 ML VIAL ONE (06:53)
[2017-05-01 07:03] LABS: BASOPHILS % (AUTO) 0 % (0-10); EOSINOPHILS # (AUTO) 0.3 10^3/uL (0.0-0.3); EOSINOPHILS % (AUTO) 3 % (0-10); HEMATOCRIT 42 % (35-52); LYMPHOCYTES # (AUTO) 2.2 X 10^3 (1.0-4.0); LYMPHOCYTES % (AUTO) 23 % (12-44); MEAN CORPUSCULAR HEMOGLOBIN 30 PG (25-34); MEAN CORPUSCULAR HGB CONC 33 G/DL (32-36); MEAN CORPUSCULAR VOLUME 90 FL (80-99); MONOCYTES # (AUTO) 0.6 X 10^3 (0.0-1.0); MONOCYTES % (AUTO) 7 % (0-12); NEUTROPHILS # (AUTO) 6.3 X 10^3 (1.8-7.8); NEUTROPHILS % (AUTO) 67 % (42-75); PLATELET COUNT 343 10^3/uL (130-400); RED CELL DISTRIBUTION WIDTH 13.3 % (10.0-14.5); WHITE BLOOD COUNT 9.4 10^3/uL (4.3-11.0)
--- NOTE | 2017-05-01 07:11 | Progress Note-Pre Operative ---
Pre-Operative Progress Note H&P Reviewed The H&P was reviewed, patient examined and no changes noted. Date Seen by Provider: May 01, 2017 Time Seen by Provider: 07:02 Date H&P Reviewed: May 01, 2017 Time H&P Reviewed: 07:00 Pre-Operative Diagnosis: AUB, CPP, Dysmenorrhea HILTON MURPHY DO May 01, 2017 7:11 am
[2017-05-01] MEDS ORDERED: FEXO1TAB43 PO (07:20)
[2017-05-01] MEDS ORDERED: INDIGO CARMINE 8 MG/ML 5 ML AMP ONE (08:10)
[2017-05-01] MEDS ORDERED: FUROSEMIDE 40 MG/4 ML INJ (LASIX) ONE (08:15)
[2017-05-01] MEDS ORDERED: NEOSTIGMINE 1 MG/ML 5 ML SYRINGE ONE (08:32)
[2017-05-01] MEDS ORDERED: GLYCOPYRROLATE 0.2 MG/ML (ROBINUL) 2 ML VIAL ONE (08:32)
[2017-05-01] MEDS ORDERED: morphine INJ 10 MG/ML 1ML (SYR OR VIAL) ONE (08:35)
[2017-05-01] MEDS ORDERED: LACTATED RINGERS 1,000 ML IV SCH (08:43)
--- NOTE | 2017-05-01 08:43 | Progress Note-Post Operative ---
Post-Operative Progess Note Surgeon (s)/Pipe Coverer Helper (s) Surgeon HILTON MURPHY DO Pipe Coverer Helper: Misty Reed Pre-Operative Diagnosis AUB, CPP, Dysmenorrhea Post-Operative Diagnosis RATLH w/ tubes Procedure & Operative Findings Date of Procedure 05/01/17 Procedure Performed/Findings see dictation Anesthesia Type GETA Estimated Blood Loss Estimated blood loss (mL): min Specimens/Packing Specimens Removed uterus and tubes HILTON MURPHY DO May 01, 2017 8:43 am
[2017-05-01] MEDS ORDERED: ZOLPIDEM 5 MG (AMBIEN) TAB PO PRN (08:45)
[2017-05-01] MEDS ORDERED: KETOROLAC 30 MG/ML VIAL IV PRN (08:45)
[2017-05-01] MEDS ORDERED: ANTACID SUSP 30 ML UDC (MYLANTA) PO PRN (08:45)
[2017-05-01] MEDS ORDERED: DOCUSATE SODIUM 100 MG (COLACE) CAP PO PRN (08:45)
[2017-05-01] MEDS ORDERED: CHLORASEPTIC LOZENGE MM PRN (08:45)
[2017-05-01] MEDS ORDERED: HYDROcodone/APAP 7.5 MG/325 MG (LORTAB, LORCET PLUS) TABLET PO PRN (08:45)
[2017-05-01] MEDS ORDERED: ONDANSETRON 4 MG/2 ML (SDV) Z0FRAN IV PRN (08:45)
[2017-05-01] MEDS ORDERED: SIMETHICONE 80 MG (MYLICON) CHEW PO PRN (08:45)
--- NOTE | 2017-05-01 08:45 | Discharge Inst-Women's Service ---
Discharge Inst-Women's Serv Depart Medication/Instructions New, Converted or Re-Newed RX: RX on Chart Consults/Follow Up Additional Follow Up: Yes Orders/Referrals Dr. Coleman in 7-10 days and in 8 weeks Activity Activity: Activity as Tolerated Driving Instructions: No Driving for 1 Week NO SMOKING: NO SMOKING Nothing Inside Vagina: No Douching, No Mustang, No Tampons Diet Discharge Diet: No Restrictions Symptoms to Report to : Bleeding Excessive, Pain Increased, Fever Over 101 Degrees F, Vaginal Bleeding Increase, Questions/Concerns For Any Problems or Questions: Contact Your Physician Skin/Wound Care Infection Signs and Symptoms: Increased Redness, Foul Odor of Wound, Increased Drainage, Skin Itchy or Has a Rash, Increased Swelling, Temperature Above 101 F Operative Area Clean and Dry: Keep Incision Clean/Dry Stitches/[place]/Dermabond: Dermabond, Care of Stitches Bathing Instructions: HILTON Mata DO May 01, 2017 8:45 am
[2017-05-01] MEDS ORDERED: SIME80TA16 PO (08:47)
[2017-05-01] MEDS ORDERED: DOCU100C37 PO (08:47)
[2017-05-01] MEDS ORDERED: IBUP-1773 PO (08:47)
[2017-05-01] MEDS ORDERED: HYDR-34 PO (08:47)
[2017-05-01] MEDS ORDERED: ONDANSETRON 4 MG/2 ML (SDV) Z0FRAN IVP PRN (09:00)
[2017-05-01] MEDS: morphine INJ 10 MG/ML 1ML (SYR OR VIAL) IVP PRN ×2 (09:00→09:17)
[2017-05-01] MEDS ORDERED: MEPERIDINE (DEMEROL) INJ 50 MG/ML IVP PRN (09:00)
[2017-05-01] MEDS ORDERED: HYDROmorphone (DILAUDID) 2 MG/ML VIAL IVP PRN (09:00)
[2017-05-01 09:45] VITALS: BP 115/70
--- NOTE | 2017-05-01 13:18 | OPERATIVE REPORT ---
DATE OF SERVICE: 05/01/2017 PREOPERATIVE DIAGNOSES: 1. A 36-year-old female with chronic pelvic pain. 2. Dysmenorrhea. 3. Abnormal uterine bleeding. POSTOPERATIVE DIAGNOSIS: 1. A 36-year-old female with chronic pelvic pain. 2. Dysmenorrhea. 3. Abnormal uterine bleeding. PROCEDURE: Robotic-assisted total laparoscopic hysterectomy and bilateral salpingectomy. SURGEON: Carlito Coleman DO TUB WASHER: KELLY Joya ANESTHESIA: General endotracheal. ESTIMATED BLOOD LOSS: Minimal. URINE OUTPUT: 40 mL of clear urine with indigo carmine stained urine in the tube. FLUIDS: 1500 mL of Lactated Ringer's solution. FINDINGS: Normal-appearing uterus that has filmy adhesions to the anterior abdominal wall and filmy adhesions to the vesicouterine peritoneum consistent with previous cesareans. Also, adhesions to the uterine fundus of the descending sigmoid colon. Bilateral fallopian tubes appeared to be ligated. Bilateral ovaries appear to be grossly normal. SPECIMEN SENT: Uterus, bilateral fallopian tubes. INDICATION FOR PROCEDURE: This 36-year-old female is a patient, who has tried multiple conservative management options with her bleeding over the past 10 to 15 years. She reports that her symptoms had significantly worsened in the past 3 to 4 years and now they are getting to the point where she is missing work and unable to function because of the discomfort that she is in, especially around the time of her period. We discussed more conservative measures once again. We also discussed Lupron therapy; however, the patient wishes just to proceed with a hysterectomy. Risk of this procedure were discussed with the patient in detail including risk of bleeding, infection, damage to any surrounding structures including, but not limited to bowel, bladder, ureter kidneys, risk for postoperative complications including hematoma formation, thromboembolic events, need for possible reoperation if anything should be damaged during the procedure. Also risk from anesthesia was discussed. After all the patient's questions were answered, we also discussed the possibility of her pain still being present pending the etiology since we do not know at this point. She demonstrated understanding of all of these things. A consent was obtained in the preoperative area and the patient was taken to the operating room. OPERATIVE REPORT IN DETAIL: Once in the operating room, general anesthesia was found to be adequate, placed in dorsal lithotomy position, prepped and draped in normal sterile fashion. Fu catheter placed using sterile technique. A weighted speculum was inserted into the patient's vagina and right angle retractor was used to visualize the cervix, was grasped at 12 o'clock position using a single tooth tenaculum and 0 Vicryl sutures placed in the anterior lip of the cervix and this is using my retraction point then sounded the uterine cavity depth that was found to be 8 cm. I then selected an 8 cm Taylor manipulator tip and a 3 cm colpotomy ring placed within the uterus and advance a colpotomy around the vaginal fornix and excellent uterine manipulation is noted. After doing this, I then removed all the other instruments from the patient's vagina. A Fu catheter is left in place; however. Change of gloves was performed and attention was then taken to the abdomen where an infraumbilically infiltrated using 0.25% Marcaine, making 8 mm incision to direct a Veress needle through the incision until intraperitoneal placement was confirmed using a saline drop test. With insufflation using CO2 gas and opening pressure of 5 mmHg was noted, I proceed to measure pressure of 50 mmHg at which point I removed the Veress needle and introduced an 8 mm blunt da Vijay camera trocar. Once this was in place, I am able to confirm intraperitoneal placement using the da Vijay laparoscope. I had the patient placed in steep Trendelenburg and I am able to visualize all the findings as described in my findings above. I then placed two lateral trocars and these were both 8 mm trocars approximately 8 cm lateral to my infraumbilical trocar. The skin was infiltrated using 0.25% Marcaine, 8 mm incisions were made and the trocars were placed under direct visualization of the laparoscope. Once these are in place, I am able to bring the da Vijay robot docked in the appropriate fashion and I placed the monopolar della in the right hand and bipolar da Vijay vessel sealer in the left hand. I first started out by documenting the adhesions with photography and then taken them down using monopolar della. I take them off the uterus as well. I then performed the following dissection bilaterally. I grasped the uteroovarian ligament, bipolar cauterized and transected using vessel sealer. I then created a window in the mesosalpinx and take this laterally amputating the fallopian tube and the remnant of the fallopian tube from the surrounding blood supply. Once this was done, I am able to grasp the round ligament, bipolar cauterized and transected using vessel sealer. This allowed me to grasp the entire broad ligament from anterior leaf of the posterior leaflet using the vessel sealer and transected down to the level of the lower uterine segment, which is significantly scarred. I have to carefully dissect the peritoneal adhesions off the lower uterine segment using the monopolar della and traction. Once this is done, I am able to take the posterior leaflet around to the posterior vaginal fornix, which exposes the uterine vessels laterally. I then bipolar cauterized and transecting using vessel sealer. Once this was done, I performed a colpotomy at the 6 o'clock position on the posterior vaginal fornix due to my concern of the adhesions of the bladder. I take this around the lateral aspects of the vaginal fornix to the anterior vaginal fornix dissecting the bladder off the lower uterine segment. The entire specimen was then amputated from the vaginal fornix and then removed through the vagina. I then closed the lateral vaginal apices of the vaginal cuff using 2-0 Vicryl suture in a [id number] fashion and cuff was suspended into the uterosacral ligaments. I then closed the remainder of the vaginal cuff using 2-0 V-Loc in running fashion, after which was no bleeding was noted from any of my dissection planes. I then undocked the da Vijay robotic and proceeded with the remainder of the case laparoscopically. Once again, there is no active bleeding noted from my dissection planes. The pelvis was copiously irrigated using normal saline. After this was done, I placed FloSeal hemostatic agent over all my planes of dissection and have the patient taken out of steep Trendelenburg and lateral trocars were removed. The infraumbilical trocar is then used to release insufflation and introduced 10 mL of 0.25% Marcaine into the peritoneal cavity to provide postoperative analgesia. I then removed this trocar as well. The skin was then reapproximated using 4-0 Monocryl interrupted subcuticular stitches. Dermabond is applied to incision and bandage placed over this. The patient tolerated the procedure well and sent to recovery room in stable condition. Lap and sponge counts correct at the end of the procedure and instrument count was correct as well. Two grams of Ancef and 500 mg of Flagyl given preoperatively for infection prophylaxis. Job ID: [id number] DocumentID: [id number] Dictated Date: 05/01/2017 09:27:31 Director Biostatistics Date: 05/01/2017 13:17:35 Dictated By: DO COLLINS GALVAN
--- NOTE | 2017-05-01 14:15 | Anesthesia-General Post-Op ---
General Patient Condition Mental Status/LOC: Same as Preop Cardiovascular: Satisfactory Nausea/Vomiting: Absent Respiratory: Satisfactory Pain: Controlled Complications: Absent Post Op Complications Complications None Follow Up Care/Instructions Patient Instructions None needed. Anesthesia/Patient Condition Patient Condition Patient is doing well, no complaints, stable vital signs, no apparent adverse anesthesia problems. No complications reported per nursing. LOYDA NIEVES CRNA May 01, 2017 14:15
[2017-05-02] MEDS ORDERED: IBUPROFEN 600 MG (MOTRIN) TAB PO PRN (01:30)
== END 2017-05-01 14:55 | disposition home or self-care (01) ==
LOC: SDC 05:48 → WS 10:20 → SDC 14:55
PROVIDERS: ATTEND Obstetrics & Gynecology
DX: R10.2 Pelvic and perineal pain (principal); N94.5 Secondary dysmenorrhea; N93.9 Abnormal uterine and vaginal bleeding, unspecified; F17.210 Nicotine dependence, cigarettes, uncomplicated
CPT/HCPCS: 36415; 84703; 85025; 86850; 86900; 86901; 87081

== ENCOUNTER 2017-07-30 01:14 | Emergency (ER) | payer OTHER ==
[~2017-07-30] VITALS: Ht 157.5 cm; Wt 80.7 kg
[~2017-07-30 01:14] MED LIST changes: +DOCU100C37 PO; +FEXO1TAB43 PO; +HYDR-34 PO; +IBUP-1773 PO; +SIME80TA16 PO
[2017-07-30] MEDS ORDERED: RT-ALBUTEROL/IPRATROPIUM 3 ML (DUONEB) VIAL INH ONE (01:45)
[2017-07-30] MEDS ORDERED: DEXAMETHASONE 4 MG/ML SDV (DECADRON) IH ONE (01:45)
--- NOTE | 2017-07-30 01:45 | ED General ---
General Chief Complaint: Exposure Stated Complaint: SMOKE INHALATION Nursing Triage Note: patient reports that the ventilation system at her work has been down this week and she feels like she has been inhaling quite a bit of smoke Nursing Sepsis Screen: No Definite Risk Source of Information: Patient History of Present Illness Date Seen by Provider: Jul 30, 2017 Time Seen by Provider: 01:30 Initial Comments PT ARRIVES VIA POV STATES SHE THINKS SHE HAS SMOKE INHALATION PT STATES SHE WORKS AT [employer] AND THE VENTILATION SYSTEM HAS BEEN DOWN THIS WEEK STATES THE [employer]YER VENTILATION IS " SORT OF WORKING" AND THEY HAVE HAD A LARGE INDUSTRIAL FAN BLOWING INTO THE RETURN VENTILATION, BUT DOESN'T THINK IT IS HELPING STATES SHE HAS WORKED THE LAST 3 NIGHTS LIKE THIS--STATES SHE WORKED 7AM-2 PM ON THURSDAY, AND LAST NIGHT AND TONIGHT SHE WORKED FROM 4PM- 11 PM STATES SHE HAS HAD A LITTLE CHEST PAIN LAST NIGHT AND SOME TONIGHT AND IT GOES INTO HER BACK C/O NON-PRODUCTIVE COUGH--CHEST HURTS TO BREATHE C/O HEADACHE C/O SORE THROAT PT STATES SHE USED HER ALBUTEROL INHALER TONIGHT AND IT MADE IT WORSE. ( STATES SHE HAD ASTHMA YEARS AGO, AND HAD BRONCHITIS 6 MONTHS AGO AND GOT THIS INHALER-- DOES NOT UNTIL 2018) NO FEVER OR RECENT ILLNESS PCP: DR. BANKS Allergies and Home Medications Allergies Coded Allergies: Sulfa (Sulfonamide Antibiotics) (Verified Allergy, Intermediate, RASH/SOB , 04/23/17) magnesium sulfate (Verified Allergy, Mild, LOW B/P, FEVER, 04/23/17) Penicillins (Verified Allergy, Unknown, 04/23/17) ciprofloxacin (Unverified Adverse Reaction, Intermediate, HIVES, THROAT SWELLING, 04/23/17) Home Medications No Active Prescriptions or Reported Meds Patient Home Medication List Home Medication List Reviewed: Yes Review of Systems Constitutional: no symptoms reported EENTM: see HPI, throat pain Respiratory: see HPI, cough Cardiovascular: see HPI, chest pain Gastrointestinal: no symptoms reported Genitourinary: no symptoms reported Musculoskeletal: see HPI, back pain Skin: no symptoms reported Psychiatric/Neurological: No Symptoms Reported Hematologic/Lymphatic: No Symptoms Reported Immunological/Allergic: no symptoms reported Past Yedphin-Sbzclp-Eqztyx Hx Patient Social History Alcohol Use: Denies Use Recreational Drug Use: No Smoking Status: Current Everyday Smoker Type Used: Cigarettes Recent Foreign Travel: No Contact w/Someone Who Travel: No Recent Infectious Disease Expo: No Recent Hopitalizations: No Physical Abuse: No Sexual Abuse: No Immunizations Up To Date Tetanus Booster (TDap): Less than 5yrs Seasonal Allergies Seasonal Allergies: Yes Past Medical History Surgeries: Yes (HYST/OVARIES INTACT 04/2017; X 3; COLONOSCOPIES) Section, Hysterectomy, Tubal Ligation Respiratory: Yes Asthma Cardiac: No Neurological: Yes Headaches /Migraines Reproductive Disorders: Yes (CPP, AUB, FIBROIDS, DYSMENORRHEA) Female Reproductive Disorders: Menstrual Problems, 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: Hysterectomy, Tubal Ligation Sexually Transmitted Disease: No HIV/AIDS: No Genitourinary: Yes Kidney Stones Gastrointestinal: Yes (SPASTIC COLON) Diverticulosis, Chronic Diarrhea, Irritable Bowel Musculoskeletal: Yes Arthritis Endocrine: No HEENT: No Loss of Vision: Bilateral Hearing Impairment: Denies Cancer: No Psychosocial: No Nursing Suicide Risk Score: 0 Integumentary: No Blood Disorders: No Adverse Reaction/Blood Tranf: No (N/A) Physical Exam Vital Signs Vital Signs - First Documented 07/30/17 07/30/17 01:20 01:54 Temp 98.6 Pulse 96 Resp 18 B/P (MAP) 139/80 (99) Pulse Ox 99 O2 Delivery Room Air Capillary Refill : Less Than 3 Seconds General Appearance: No Apparent Distress, WD/WN, Other (DOES NOT SMELL LIKE SMOKE ) HEENT: PERRL/EOMI, Normal ENT Inspection Neck: Normal Inspection Respiratory: Normal Breath Sounds, No Accessory Muscle Use, No Respiratory Distress Cardiovascular: Regular Rate, Rhythm, No Edema, No JVD, No Murmur, Normal Peripheral Pulses Gastrointestinal: Non Tender, Soft Back: Normal Inspection Extremity: Normal Capillary Refill, Normal Inspection, Normal Range of Motion, Non Tender, No Calf Tenderness, No Pedal Edema Neurologic/Psychiatric: Alert, Oriented x3, No Motor/Sensory Deficits, Normal 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, 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 as Tested Skin: Normal Color, Warm/Dry Progress/Results/Core Measures Suspected Sepsis Recent Fever Within 48 Hours: No Infection Criteria Present: None New/Unexplained Altered Menta: No Sepsis Screen: No Definite Risk SIRS Temperature:98.6 Pulse: 96 Respiratory Rate: 18 Blood Pressure 139 /80 Mean: 99 Results/Orders My Orders Orders - SUSAN,SHONDA K DO Monitor-Rhythm Ecg Trace Only (07/30/17 01:38) Chest Pa/Lat (2 View) (07/30/17 01:38) Albuterol/Ipra Inhalation Soln (Duoneb I (07/30/17 01:45) Dexamethasone Injection (Decadron Inject (07/30/17 01:45) Rt Request For Service (07/30/17 01:38) Svn Small Volume Nebulizer (07/30/17 01:38) Medications Given in ED Current Medications Medications Dose Ordered Sig/Carlos A Route Start Time Stop Time Status Last Admin Dose Admin Albuterol/ Ipratropium 3 ml ONCE ONCE INH 07/30/17 01:45 07/30/17 01:46 DC 07/30/17 01:53 3 ML Dexamethasone Sodium Phosphate 20 mg ONCE ONCE IH 07/30/17 01:45 07/30/17 01:46 DC 07/30/17 01:54 20 MG Vital Signs/I&O 07/30/17 07/30/17 01:20 01:54 Temp 98.6 Pulse 96 Resp 18 B/P (MAP) 139/80 (99) Pulse Ox 99 98 O2 Delivery Room Air Capillary Refill : Less Than 3 Seconds Blood Pressure Mean: 99 Progress Note : Progress Note PT STATES SHE FEELS BETTER AFTER NEB TREATMENT PT GIVEN A SPACER AND TEACHING FOR USE WITH HER HOME INHALER. Diagnostic Imaging Comments CXR--NO ACUTE PROCESS, PENDING RADIOLOGIST REVIEW Reviewed: Reviewed by Me Departure Impression Primary Impression: REPORTED SMOKE INHALATION Additional Impression: REACTIVE AIRWAY Disposition: HOME, SELF-CARE Condition: Improved Departure-Patient Inst. Referrals: INGRID BANKS MD (PCP/Family) Primary Care Physician Patient Instructions: Avoiding Asthma Triggers, Smoke Inhalation (DC) Add. Discharge Instructions: USE YOUR INHALER WITH SPACER AT ALL TIMES--2 PUFFS EVERY 4 HOURS NEEDED FOR BREATHING LOTS OF CLEAR LIQUIDS AVOID SMOKY ENVIRONMENT FOLLOW UP WITH DR. BANKS TOMORROW FOR FURTHER CARE RETURN TO ER IF WORSE All discharge instructions reviewed with patient and/or family. Voiced understanding. Scripts Guaifenesin/Dextromethorphan (Mucinex Dm ER 1,200-60 mg Tab) 1 Each Tbmp.12hr 1 EACH PO BID for 10 Days, #20 EA Prov: SHONDA DAVIS DO 07/30/17 Benzonatate (Tessalon Perle) 100 Mg Capsule 1-2 TAB PO TID for Cough, #30 CAP Prov: SHONDA DAVIS DO 07/30/17 Prednisone (Prednisone) 10 Mg Tab 40 MG PO DAILY, #12 TAB Prov: SHONDA DAVIS DO 07/30/17 SHONDA DAVIS DO Jul 30, 2017 01:45
[2017-07-30] MEDS ORDERED: PRD10T PO (02:25)
[2017-07-30] MEDS ORDERED: GUAI1TBM19 PO (02:25)
[2017-07-30] MEDS ORDERED: BENZ-13 PO (02:25)
[2017-07-30] MEDS ORDERED: BENZONATATE 100 MG (TESSALON) CAPSULE PO SCH (02:30)
[2017-07-30 02:32] VITALS: BP 139/80
--- NOTE | 2017-07-30 07:08 | Diagnostic Imaging Report ---
INDICATION: Shortness of breath. PA and lateral chest. FINDINGS: Heart size and pulmonary vascularity are normal. Lungs are clear. There are no effusions or pneumothoraces. IMPRESSION: Negative chest. Dictated by: Dictated on workstation # [id number]
== END 2017-07-30 02:32 | disposition home or self-care (01) ==
LOC: EDUNIT# 01:14 → ER 01:17
DX: T59.811A Toxic effect of smoke, accidental (unintentional), initial encounter (principal); J70.5 Respiratory conditions due to smoke inhalation; J45.909 Unspecified asthma, uncomplicated; G43.909 Migraine, unspecified, not intractable, without status migrainosus; F17.210 Nicotine dependence, cigarettes, uncomplicated; Z87.442 Personal history of urinary calculi; Z87.59 Personal history of other complications of pregnancy, childbirth and the puerperium; Z98.51 Tubal ligation status; Z90.710 Acquired absence of both cervix and uterus; Z88.2 Allergy status to sulfonamides; Z88.0 Allergy status to penicillin; Z88.1 Allergy status to other antibiotic agents; Z88.8 Allergy status to other drugs, medicaments and biological substances
CPT/HCPCS: 71046; 94640